=== PATIENT | female | born 1985 | race Caucasian/White ===

== ENCOUNTER 2023-03-10 03:01 | Outpatient (CLI) | payer MEDICAID, SELFPAY ==
[2023-03-10 11:55] LABS: Panorama Kit Sent via Fed Ex
[2023-03-10 11:58] LABS: Abs Immature Grans 0.03 10^3/uL (0.0-0.06); Absolute Basophil Count 0.02 10^3/uL (0.0-0.2); Absolute Eosinophil Count 0.11 10^3/uL (0.0-0.7); Absolute Lymphocyte Count 1.16 10^3/uL (1.2-3.4); Absolute Neutrophil Count 5.89 10^3/uL (1.2-6.7); Basophils % 0.3; Eosinophils % 1.4; HCT 37.7 % (36.0-46.0); HGB 12.9 g/dL (11.2-15.7); Immature Grans % 0.4; Lymphocytes % 14.9; MCH 31.3 pg (27.0-33.0); MCHC 34.2 % (32.0-36.0); MCV 92 fL (80-95); Monocytes % 7.7; Neutrophils % 75.3; Platelet Count 273 10^3/uL (130-400); RBC 4.12 10^6/uL (3.93-5.22); RDW 12.6 % (11.7-14.6); RDW-SD 41.8 fL; WBC 7.81 10^3/uL (4.4-10.8)
[2023-03-11 08:33] LABS: Hepatitis B Surface Ag Negative (Negative)
[2023-03-11 09:07] LABS: Hepatitis C Ab w Rflx HCV PCR Negative (Negative)
[2023-03-11 09:15] LABS: HIV-1/2 Ag & Ab Screen Negative (Negative)
[2023-03-11 09:25] LABS: Rubella IgG Ab (UVM) Positive (See Note); Varicella IgG Antibody Positive (See Note)
[2023-03-12 20:27] LABS: Syphilis IgG w/Reflex Nonreactive (Nonreactive)
[2023-03-22 21:25] LABS: Result Summary NEGATIVE; Specimen WB Whole Blood
== END 2023-03-10 03:02 | disposition home or self-care (01) ==
LOC: LBO 03:01
PROVIDERS: Visit Provider Advanced Practice Midwife
DX: Z34.91 Encounter for supervision of normal pregnancy, unspecified, first trimester
CPT/HCPCS: 36415; 81220; 81222; 86787; 86803; 86850; 86900; 86901; 87340; 87389; 85025; 86762; 86780

== ENCOUNTER 2023-03-10 15:12 | Outpatient (REF) | payer MEDICAID, SELFPAY ==
[2023-03-10 15:51] LABS: *AMPHETAMINES SCREEN URINE Negative (Negative); *BARBITURATES SCREEN URINE Negative (Negative); *BENZODIAZEPINES SCREEN URINE Negative (Negative); Cannabinoids THC Negative (Negative); Cocaine Screen,Urine Negative (Negative); METHADONE URINE SCREEN Negative (Negative); OPIATES URINE SCREEN Negative (Negative)
[2023-03-10 15:53] LABS: Tricyclic Antidepressants Negative (Negative)
[2023-03-11 13:53] LABS: Chlamydia Result Negative (Negative); GC Result Negative (Negative)
[2023-03-16 09:42] LABS: Buprenorphine Negative ng/mL (Cutoff: 5.0); Norbuprenorphine Negative ng/mL (Cutoff: 2.5)
[2023-03-17 02:58] LABS: Fentanyl Interpretation Negative.; Fentanyl by LC-MS/MS Not Detected; Norfentanyl by LC-MS/MS Not Detected
== END 2023-03-10 15:13 | disposition home or self-care (01) ==
LOC: LBN 15:12
PROVIDERS: Visit Provider Advanced Practice Midwife
DX: O09.511 Supervision of elderly primigravida, first trimester (principal); Z11.3 Encounter for screening for infections with a predominantly sexual mode of transmission; Z3A.11 11 weeks gestation of pregnancy
CPT/HCPCS: 80307; 80348; 87491; 87591; 80354; 87086

== ENCOUNTER → 2023-05-05 01:40 | Outpatient (CLI) | payer MEDICAID, SELFPAY ==
--- NOTE | 2023-05-05 07:30 | DI.US_ITS ---
Exam(s) US OB 2-3 TRIMESTER EXAM: US OB 2-3 TRIMESTER CLINICAL HISTORY: SURVEY,Z34.90. TECHNIQUE: Transabdominal obstetrical ultrasound performed. COMPARISON: US POCUS EXAM from 02/17/2023 FINDINGS: Number of fetuses: One. position: Variable Placental grade: 1 Placental location: Posterior. Edge of placenta measures 2.5 cm from the internal os. BIOMETRIC DATA: BPD: 44mm = 19+ 3 weeks HC: 163mm = 19+ 0 weeks AC: 138mm = 19+ 2 weeks FL: 29mm = 18+ 6 weeks Cisterna Magna: 4.5 mm Cerebellum: 1.7 cm EFW: 272 grms 50% Composite Age: 19+1 weeks EDC by US: 28 September 2023 Heart Rate: 146BPM Amniotic fluid : Amount of fluid is within normal limits. ANATOMICAL SURVEY: Four-chambered heart: Unremarkable. LVOT: Unremarkable. RVOT: Unremarkable. Left-sided stomach: Unremarkable. urinary bladder: Unremarkable. Bilateral kidneys: Unremarkable. Three-vessel cord: Unremarkable. Cord insertion: Unremarkable. Posterior fossa:Unremarkable. ventricles: Unremarkable. nose: Unremarkable. lips: Unremarkable. palate: Unremarkable. spine: Unremarkable. Two arms and two legs: Unremarkable. IMPRESSION: 1. Single live intrauterine gestation with composite age 19+ 1 weeks. 2. Normal anatomic survey. DATA REPOSITORY:
== END ==
PROVIDERS: PCP Nurse Practitioner Family; Visit Provider Advanced Practice Midwife
DX: Z34.92 Encounter for supervision of normal pregnancy, unspecified, second trimester (principal); Z3A.19 19 weeks gestation of pregnancy
CPT/HCPCS: 76805

== ENCOUNTER 2023-05-28 13:41 | Outpatient (REF) | payer MEDICAID, SELFPAY | END 2023-05-28 13:42 | disposition home or self-care (01) | LOC: LBN 13:41 | PROVIDERS: PCP Nurse Practitioner Family; Visit Provider Advanced Practice Midwife | DX: O26.892 Other specified pregnancy related conditions, second trimester (principal); N89.8 Other specified noninflammatory disorders of vagina; Z3A.22 22 weeks gestation of pregnancy | CPT/HCPCS: 87480; 87510; 87660 ==

== ENCOUNTER 2023-07-09 02:29 | Outpatient (CLI) | payer MEDICAID, SELFPAY ==
[2023-07-09 11:29] LABS: HCT 35.8 % (36.0-46.0); HGB 11.8 g/dL (11.2-15.7); MCH 32.2 pg (27.0-33.0); MCV 98 fL (80-95); MPV 9.9 fL (8.0-11.0); Platelet Count 197 10^3/uL (130-400); RBC 3.67 10^6/uL (3.93-5.22); RDW 12.6 % (11.7-14.6); RDW-SD 45.1 fL; WBC 7.31 10^3/uL (4.4-10.8)
[2023-07-09 11:38] LABS: Glucose,1 Hr (Glucola) 116 mg/dL (80-140)
== END 2023-07-09 02:30 | disposition home or self-care (01) ==
LOC: LBO 02:30
PROVIDERS: PCP Nurse Practitioner Family; Visit Provider Advanced Practice Midwife
DX: Z34.90 Encounter for supervision of normal pregnancy, unspecified, unspecified trimester (principal); Z34.93 Encounter for supervision of normal pregnancy, unspecified, third trimester
CPT/HCPCS: 36415; 82950; 85027

== ENCOUNTER → 2023-08-09 01:45 | Outpatient (CLI) | payer MEDICAID, SELFPAY ==
--- NOTE | 2023-08-09 06:42 | DI.US_ITS ---
Exam(s) US OB SIMEON WEIGHT EXAM: US OB SIMEON WEIGHT CLINICAL HISTORY: bleeding in 2nd trimester,o46.92,MEASURE PLACENTAL DISTANCE FROM OS. TECHNIQUE: Transabdominal obstetrical ultrasound performed. COMPARISON: US US OB 2-3 TRIMESTER from 05/05/2023 FINDINGS: Number of fetuses: 1 position: Cephalic. Placental location: There is a grade 1 posterior placenta. No evidence of previa. Cervical length: At least 4.5 cm. BIOMETRIC DATA: BPD: 8.5cm, 34weeks 2days HC: 30.06cm, 33weeks 2days AC: 28.02cm, 32weeks FL: 6.38cm, 33weeks EFW: 2,020.19g, 4lb 7.57oz, 38% Composite Age: 33weeks 1day ALISSON: 09/26/2023 Heart Rate: 136bpm Amniotic fluid index: 4.89cm. The largest pocket is 1.9 cm. IMPRESSION: 1. Single live intrauterine gestation as above. 2. Estimated weight is 2020gms. This is the 38th percentile. 3. Oligohydramnios. Amniotic fluid index is 4.9 cm. The largest pocket is 1.9 cm. DATA REPOSITORY:
== END ==
PROVIDERS: PCP Nurse Practitioner Family; Visit Provider Advanced Practice Midwife
DX: O46.93 Antepartum hemorrhage, unspecified, third trimester (principal); O41.03X0 Oligohydramnios, third trimester, not applicable or unspecified; Z3A.33 33 weeks gestation of pregnancy
CPT/HCPCS: 76816

== ENCOUNTER 2023-08-09 09:55 | Outpatient (CLI) | payer MEDICAID, SELFPAY ==
[2023-08-09 10:08] VITALS: BP 114/78; PULSE 62; TEMP 36.6
[2023-08-09 10:11] VITALS: BP 114/78; PULSE 62
--- NOTE | 2023-08-09 11:43 | W.OBNST ---
Date of service: 08/09/23 Time of Service: 11:43 NST Evaluation Reason for NST Reasons for Nonstress Test: OLIGOHYDRAMNIOS Gestational Age Gestational Age in Weeks and Days: 32 Weeks and 5Days Test and Monitor Explained Test/Monitor Explained: Test Explained, Monitor Explained and Patient Verbalized Understanding Vital Signs Blood Pressure: 114/78 Pulse: 62 Temperature: 97.9 F Urine Results Urine Protein: Negative Urine Ketones: Negative Urine Glucose: Negative Urine Blood: Negative NST Information Date on Monitor: 08/09/23 Time on Monitor: 10:00 NST Interventions: PO Hydration NST Evaluation Patient States Movement: Present FHR Baseline: 130 Variability: Moderate 6-25 bpm Accelerations: 15x15 Decelerations: None NST Results: Reactive Note Ultrasound Done: N/A. NST Note Note: Janae is here for an NST for oligohydramnios. SIMEON at DI today was 4.8. Reactive NST today. Plan made for weekly SIMEON and NST 2 x weekly and that has been scheduled. Plan reviewed with Dr Gabriel who agrees. NST Reviewed and Verified by: Fransisca Arriaga
[2023-08-09 11:45] VITALS: BP 114/78; PULSE 62; TEMP 36.6
== END 2023-08-09 10:53 | disposition home or self-care (01) ==
LOC: BCD 09:57 → OBS 10:05
PROVIDERS: PCP Nurse Practitioner Family; Visit Provider Advanced Practice Midwife
DX: O41.03X0 Oligohydramnios, third trimester, not applicable or unspecified (principal); Z3A.32 32 weeks gestation of pregnancy
CPT/HCPCS: 59025

== ENCOUNTER 2023-08-12 12:47 | Outpatient (CLI) | payer MEDICAID, SELFPAY ==
[2023-08-12 12:52] VITALS: BP 120/69; PULSE 74; TEMP 36.9
--- NOTE | 2023-08-12 13:15 | W.OBNST ---
Date of service: 08/12/23 Time of Service: 13:15 NST Evaluation Reason for NST Reasons for Nonstress Test: OLIGOHYDRAMNIOS Gestational Age Gestational Age in Weeks and Days: 33 Weeks and 1Days Test and Monitor Explained Test/Monitor Explained: Test Explained, Monitor Explained and Patient Verbalized Understanding Vital Signs Blood Pressure: 120/69 Pulse: 74 Temperature: 98.4 F NST Information Date on Monitor: 08/12/23 Time on Monitor: 12:41 Date off Monitor: 08/12/23 Time off Monitor: 13:07 Total Time on Monitor: 26 NST Interventions: PO Hydration Contraction Frequency: 0 NST Evaluation Patient States Movement: Present FHR Baseline: 130 Variability: Moderate 6-25 bpm Accelerations: 15x15 Decelerations: None NST Results: Reactive Note Ultrasound Done: N/A. NST Note Note: NST is reactive and reassuring. Janae is drinking water more often and denies any signs of leaking. Has NST and repeat SIMEON on Wednesday. NST Reviewed and Verified by: Fransisca Figueredo
[2023-08-12 13:16] VITALS: BP 120/69; PULSE 74; TEMP 36.9
== END 2023-08-12 13:21 ==
LOC: BCD 12:48 → OBS 12:51
PROVIDERS: PCP Nurse Practitioner Family; Visit Provider Advanced Practice Midwife
DX: O41.03X0 Oligohydramnios, third trimester, not applicable or unspecified (principal); Z3A.33 33 weeks gestation of pregnancy
CPT/HCPCS: 59025

== ENCOUNTER 2023-08-16 05:52 | Outpatient (CLI) | payer MEDICAID, SELFPAY ==
[2023-08-16 12:47] VITALS: BP 123/70; PULSE 73; TEMP 36.3
[2023-08-16 12:48] VITALS: BP 123/70; PULSE 73; TEMP 36.3
--- NOTE | 2023-08-16 15:18 | W.OBNST ---
Date of service: 08/16/23 Time of Service: 15:18 NST Evaluation Reason for NST Reasons for Nonstress Test: OLIGOHYDRAMNIOS Gestational Age Gestational Age in Weeks and Days: 33 Weeks and 5Days Test and Monitor Explained Test/Monitor Explained: Test Explained, Monitor Explained and Patient Verbalized Understanding Vital Signs Blood Pressure: 123/70 Pulse: 73 Temperature: 97.4 F Urine Results Urine Protein: Negative Urine Ketones: Negative Urine Glucose: Negative Urine Blood: Negative NST Information Date on Monitor: 08/16/23 Time on Monitor: 12:51 Date off Monitor: 08/16/23 Time off Monitor: 13:30 Total Time on Monitor: 39 NST Interventions: PO Hydration NST Evaluation Patient States Movement: Present FHR Baseline: 145 Variability: Moderate 6-25 bpm Accelerations: 15x15 Decelerations: None NST Results: Reactive Note Ultrasound Done: SIMEON Total SIMEON: 7.97 Other Pertinent Findings: Heart Rate, Presentation (cephalic, ROP) and Placental Location (posterior and left/fundal) Coding for SIMEON w/NST: Completed Exam. NST Note Note: Normal fluid leve seen today. Discussed with Dr. Daigle, will recheck next week NST's x2 wk until SIMEON is found to be normal and stable NST Reviewed and Verified by: Deisy Millan
[2023-08-16 15:21] VITALS: BP 123/70; PULSE 73; TEMP 36.3
== END 2023-08-16 13:51 ==
LOC: BCD 05:53 → OBS 12:45
PROVIDERS: PCP Nurse Practitioner Family; Visit Provider Advanced Practice Midwife
DX: O41.03X0 Oligohydramnios, third trimester, not applicable or unspecified (principal); Z3A.33 33 weeks gestation of pregnancy
CPT/HCPCS: 59025; 76815

== ENCOUNTER 2023-08-19 12:43 | Outpatient (CLI) | payer MEDICAID, SELFPAY ==
[2023-08-19 12:55] VITALS: BP 121/78; PULSE 78; TEMP 36.7
[2023-08-19 13:07] VITALS: BP 121/78; PULSE 78
[2023-08-19 15:49] VITALS: BP 121/78; PULSE 78; TEMP 36.7
--- NOTE | 2023-08-19 15:49 | W.OBNST ---
Date of service: 08/19/23 Time of Service: 15:49 NST Evaluation Reason for NST Reasons for Nonstress Test: OLIGOHYDRAMNIOS Gestational Age Gestational Age in Weeks and Days: 34 Weeks and 1Days Test and Monitor Explained Test/Monitor Explained: Test Explained, Monitor Explained and Patient Verbalized Understanding Vital Signs Blood Pressure: 121/78 Pulse: 78 Temperature: 98.1 F NST Information Date on Monitor: 08/19/23 Time on Monitor: 12:50 Date off Monitor: 08/19/23 Time off Monitor: 13:08 Total Time on Monitor: 18 NST Interventions: PO Hydration NST Evaluation Patient States Movement: Present FHR Baseline: 135 Variability: Moderate 6-25 bpm Accelerations: 15x15 Decelerations: None NST Results: Reactive Note Ultrasound Done: N/A. NST Note Note: SIMEON and NST on Wednesday NST Reviewed and Verified by: Deisy Millan
== END 2023-08-19 13:20 | disposition home or self-care (01) ==
LOC: BCD 12:43 → OBS 12:53
PROVIDERS: PCP Nurse Practitioner Family; Visit Provider Advanced Practice Midwife
DX: O41.03X0 Oligohydramnios, third trimester, not applicable or unspecified (principal); Z3A.34 34 weeks gestation of pregnancy
CPT/HCPCS: 59025

== ENCOUNTER 2023-08-23 07:42 | Outpatient (CLI) | payer MEDICAID, SELFPAY ==
[2023-08-23 13:16] VITALS: BP 121/83; PULSE 63
[2023-08-23 13:19] VITALS: BP 121/83; PULSE 63; TEMP 36.4
--- NOTE | 2023-08-23 14:22 | W.OBNST ---
Date of service: 08/23/23 Time of Service: 14:22 NST Evaluation Reason for NST Reasons for Nonstress Test: OLIGOHYDRAMNIOS Gestational Age Gestational Age in Weeks and Days: 34 Weeks and 5Days Test and Monitor Explained Test/Monitor Explained: Test Explained, Monitor Explained and Patient Verbalized Understanding Vital Signs Blood Pressure: 121/83 Pulse: 63 Temperature: 97.5 F Urine Results Urine Protein: Negative Urine Ketones: Negative Urine Glucose: Negative Urine Blood: Negative NST Information Date on Monitor: 08/23/23 Time on Monitor: 13:29 Date off Monitor: 08/23/23 Time off Monitor: 13:59 Total Time on Monitor: 30 NST Interventions: PO Hydration Contraction Frequency: 0 NST Evaluation Patient States Movement: Present FHR Baseline: 135 Variability: Moderate 6-25 bpm Accelerations: 15x15 and Prolonged Decelerations: None NST Results: Reactive Note Ultrasound Done: SIMEON Indication: Oligohydraminos Coding for SIMEON w/NST: Completed Exam. NST Note Note: SIMEON 10 per POCUS exam performed by Johanna shin CNM. Reactive NST. Will return for NSTs weekly. NST Reviewed and Verified by: Fransisca Arriaga
[2023-08-23 14:23] VITALS: BP 121/83; PULSE 63; TEMP 36.4
== END 2023-08-23 14:11 ==
LOC: BCD 07:43 → OBS 12:46
PROVIDERS: PCP Nurse Practitioner Family; Visit Provider Advanced Practice Midwife
DX: O41.03X0 Oligohydramnios, third trimester, not applicable or unspecified (principal); Z3A.34 34 weeks gestation of pregnancy
CPT/HCPCS: 59025; 76815

== ENCOUNTER 2023-08-30 07:14 | Outpatient (CLI) | payer MEDICAID, SELFPAY ==
[2023-08-30 12:47] VITALS: BP 128/79; PULSE 72; TEMP 36.6
--- NOTE | 2023-08-30 13:26 | W.OBNST ---
Date of service: 08/30/23 Time of Service: 13:26 NST Evaluation Reason for NST Reasons for Nonstress Test: ADVANCED MATERNAL AGE Gestational Age Gestational Age in Weeks and Days: 35 Weeks and 5Days Test and Monitor Explained Test/Monitor Explained: Test Explained, Monitor Explained and Patient Verbalized Understanding Vital Signs Blood Pressure: 128/79 Pulse: 72 Temperature: 97.9 F Urine Results Urine Protein: Negative Urine Ketones: Negative Urine Glucose: Negative Urine Blood: Negative NST Information Date on Monitor: 08/30/23 Time on Monitor: 12:50 Date off Monitor: 08/30/23 Time off Monitor: 13:10 Total Time on Monitor: 20 NST Interventions: PO Hydration Contraction Frequency: 0 NST Evaluation Patient States Movement: Present FHR Baseline: 130 Variability: Moderate 6-25 bpm Accelerations: 15x15 Decelerations: None NST Results: Reactive Note Ultrasound Done: N/A. NST Note Note: Repeat NST in 1 wk, GBS collected Next EFW/SIMEON on 09/07 NST Reviewed and Verified by: Deisy Millan
[2023-08-30 13:27] VITALS: BP 128/79; PULSE 72; TEMP 36.6
== END 2023-08-30 13:20 ==
LOC: BCD 07:15 → OBS 12:43
PROVIDERS: PCP Nurse Practitioner Family; Visit Provider Advanced Practice Midwife
DX: O09.523 Supervision of elderly multigravida, third trimester (principal); Z3A.35 35 weeks gestation of pregnancy
CPT/HCPCS: 59025; 87081

== ENCOUNTER 2023-09-06 12:02 | Outpatient (CLI) | payer MEDICAID, SELFPAY ==
[2023-09-06 12:51] VITALS: BP 122/73; PULSE 64; TEMP 36.5
[2023-09-06 12:54] VITALS: BP 122/73; PULSE 64
--- NOTE | 2023-09-06 13:43 | W.OBNST ---
Date of service: 09/06/23 Time of Service: 13:44 NST Evaluation Reason for NST Reasons for Nonstress Test: ADVANCED MATERNAL AGE Gestational Age Gestational Age in Weeks and Days: 36 Weeks and 5Days Test and Monitor Explained Test/Monitor Explained: Test Explained, Monitor Explained and Patient Verbalized Understanding Vital Signs Blood Pressure: 122/73 Pulse: 64 Temperature: 97.7 F Urine Results Urine Protein: Negative Urine Ketones: Negative Urine Glucose: Negative Urine Blood: Negative NST Information Time on Monitor: 12:53 Date off Monitor: 09/06/23 NST Interventions: PO Hydration NST Evaluation Patient States Movement: Present FHR Baseline: 135 Variability: Moderate 6-25 bpm Accelerations: 15x15 NST Results: Reactive Note Ultrasound Done: N/A. NST Note Note: Reactive NST. US scheduled for 09/05. CBC drawn and results pending. Reviewed pos. GBS results and antibiotic prophylaxis. return to Center in 1 week for NST and visit. NST Reviewed and Verified by: Fransisca Arriaga
[2023-09-06 13:44] VITALS: BP 122/73; PULSE 64; TEMP 36.5
[2023-09-06 13:57] LABS: HCT 35.9 % (36.0-46.0); HGB 11.8 g/dL (11.2-15.7); MCH 31.5 pg (27.0-33.0); MCHC 32.9 % (32.0-36.0); MCV 96 fL (80-95); MPV 10.2 fL (8.0-11.0); Platelet Count 184 10^3/uL (130-400); RBC 3.75 10^6/uL (3.93-5.22); RDW 12.5 % (11.7-14.6); RDW-SD 43.7 fL; WBC 8.35 10^3/uL (4.4-10.8)
== END 2023-09-06 13:50 ==
LOC: BCD 12:02 → OBS 12:50
PROVIDERS: PCP Nurse Practitioner Family; Visit Provider Advanced Practice Midwife
DX: O09.523 Supervision of elderly multigravida, third trimester (principal); Z3A.36 36 weeks gestation of pregnancy
CPT/HCPCS: 59025; 36415; 85027

== ENCOUNTER → 2023-09-08 00:56 | Outpatient (CLI) | payer MEDICAID, SELFPAY ==
--- NOTE | 2023-09-08 07:00 | DI.US_ITS ---
Exam(s) US OB SIMEON WEIGHT EXAM: US OB SIMEON WEIGHT CLINICAL HISTORY: low fluid, interval growth,oligohydramnios,O41.00XO. TECHNIQUE: Transabdominal obstetrical ultrasound performed. COMPARISON: US US OB SIMEON WEIGHT from 08/09/2023 FINDINGS: Number of fetuses: 1 position: Cephalic. Placental location: There is a grade 2 posterior placenta. No evidence of previa. BIOMETRIC DATA: BPD: 8.82cm, 35weeks 5days HC: 31.71cm, 35weeks 5days AC: 31.53cm, 35weeks 3days FL: 7.15cm, 36weeks 4days EFW: 2,773.05g, 6lb 1.26oz, 25.3% Composite Age: 35weeks 6days ALISSON: 10/07/2023 Heart Rate: 155bpm Amniotic fluid index: 7.6cm. The largest pocket measures 3.2 cm. IMPRESSION: 1. Single live intrauterine gestation as above. 2. Estimated weight is 2773gms. This is the 25th percentile. 3. Amniotic fluid index is 7.6 cm. The largest pocket measures 3.2 cm. DATA REPOSITORY:
== END ==
PROVIDERS: PCP Nurse Practitioner Family; Visit Provider Advanced Practice Midwife
DX: O41.00X0 Oligohydramnios, unspecified trimester, not applicable or unspecified (principal)
CPT/HCPCS: 76816

== ENCOUNTER 2023-09-13 07:10 | Outpatient (CLI) | payer MEDICAID, SELFPAY ==
[2023-09-13 12:45] VITALS: BP 117/79; PULSE 64; TEMP 36.4
[2023-09-13 13:03] VITALS: BP 117/79; PULSE 64
[2023-09-13 14:12] VITALS: BP 117/79; PULSE 64; TEMP 36.4
--- NOTE | 2023-09-13 14:12 | W.OBNST ---
Date of service: 09/13/23 Time of Service: 14:12 NST Evaluation Reason for NST Reasons for Nonstress Test: OLIGOHYDRAMNIOS Gestational Age Gestational Age in Weeks and Days: 37 Weeks and 5Days Test and Monitor Explained Test/Monitor Explained: Test Explained, Monitor Explained and Patient Verbalized Understanding Vital Signs Blood Pressure: 117/79 Pulse: 64 Temperature: 97.5 F Urine Results Urine Protein: Negative Urine Ketones: Negative Urine Glucose: Negative Urine Blood: Negative NST Information Date on Monitor: 09/13/23 Time on Monitor: 12:48 Date off Monitor: 09/13/23 Time off Monitor: 13:25 Total Time on Monitor: 37 NST Interventions: PO Hydration NST Evaluation Patient States Movement: Present FHR Baseline: 130 Variability: Moderate 6-25 bpm Accelerations: 15x15 Decelerations: None NST Results: Reactive Note Ultrasound Done: N/A. NST Note Note: Will get POCUS SIMEON next week NST Reviewed and Verified by: Deisy Millan
== END 2023-09-13 13:25 | disposition other institution (70) ==
LOC: BCD 07:11 → OBS 12:43
PROVIDERS: PCP Nurse Practitioner Family; Visit Provider Advanced Practice Midwife
DX: O41.03X0 Oligohydramnios, third trimester, not applicable or unspecified (principal); Z3A.37 37 weeks gestation of pregnancy
CPT/HCPCS: 59025

== ENCOUNTER 2023-09-20 07:49 | Outpatient (CLI) | payer MEDICAID, SELFPAY ==
[2023-09-20 12:34] VITALS: BP 130/82; PULSE 68; TEMP 36.6
[2023-09-20 12:53] VITALS: BP 130/82; PULSE 68
--- NOTE | 2023-09-20 13:20 | W.OBNST ---
Date of service: 09/20/23 Time of Service: 13:21 NST Evaluation Reason for NST Reasons for Nonstress Test: OLIGOHYDRAMNIOS Gestational Age Gestational Age in Weeks and Days: 38 Weeks and 5Days Test and Monitor Explained Test/Monitor Explained: Test Explained, Monitor Explained and Patient Verbalized Understanding Vital Signs Blood Pressure: 130/82 Pulse: 68 Temperature: 97.9 F NST Information Date on Monitor: 09/20/23 Time on Monitor: 12:39 Date off Monitor: 09/20/23 Time off Monitor: 13:08 Total Time on Monitor: 29 NST Interventions: PO Hydration Contraction Frequency: rare NST Evaluation Patient States Movement: Present FHR Baseline: 135 Variability: Moderate 6-25 bpm Accelerations: 15x15 Decelerations: None NST Results: Reactive Note Ultrasound Done: SIMEON Total SIMEON: 6.3 Other Pertinent Findings: Heart Rate (138), Presentation (ROP) and Placental Location (post/fundal on left side) Coding for SIMEON w/NST: Completed Exam. NST Note NST Reviewed and Verified by: Deisy Millan
[2023-09-20 13:21] VITALS: BP 130/82; PULSE 68; TEMP 36.6
--- NOTE | 2023-09-20 13:54 | W.OBNST ---
Date of service: 09/20/23 Time of Service: 13:54 NST Evaluation Reason for NST Reasons for Nonstress Test: OLIGOHYDRAMNIOS Gestational Age Gestational Age in Weeks and Days: 38 Weeks and 5Days Test and Monitor Explained Test/Monitor Explained: Test Explained, Monitor Explained and Patient Verbalized Understanding Vital Signs Blood Pressure: 130/82 Pulse: 68 Temperature: 97.9 F NST Information Date on Monitor: 09/20/23 Time on Monitor: 12:39 Date off Monitor: 09/20/23 Time off Monitor: 13:08 Total Time on Monitor: 29 NST Interventions: PO Hydration Contraction Frequency: rare NST Evaluation Patient States Movement: Present FHR Baseline: 135 Variability: Moderate 6-25 bpm Accelerations: 15x15 Decelerations: None NST Results: Reactive Note Ultrasound Done: SIMEON Indication: Other (previous oligohydramnios) Coding for SIMEON w/NST: Completed Exam (exam performed by Johanna shin CNM). NST Note Note: Janae is here for NST due to previous oligohydramnios. SIMEON 6.2 per exam by Johanna Shin. Options reviewed including induction. Janae prefers to await spontaneous labor. Signs of labor reviewed. RTO for NST in 1 week NST Reviewed and Verified by: Fransisca Arriaga
[2023-09-20 13:58] VITALS: BP 130/82; PULSE 68; TEMP 36.6
== END 2023-09-20 13:55 | disposition other institution (70) ==
LOC: BCD 07:50 → OBS 12:34
PROVIDERS: PCP Nurse Practitioner Family; Visit Provider Advanced Practice Midwife
DX: O41.03X0 Oligohydramnios, third trimester, not applicable or unspecified (principal); Z3A.38 38 weeks gestation of pregnancy
CPT/HCPCS: 59025; 76815

== ENCOUNTER 2023-09-27 07:46 | Outpatient (CLI) | payer MEDICAID, SELFPAY ==
[2023-09-27 13:01] VITALS: BP 127/87; PULSE 62
[2023-09-27 13:12] VITALS: BP 127/87; PULSE 62; TEMP 36.6
--- NOTE | 2023-09-27 16:16 | W.OBNST ---
Date of service: 09/27/23 Time of Service: 16:16 NST Evaluation Reason for NST Reasons for Nonstress Test: OLIGOHYDRAMNIOS Gestational Age Gestational Age in Weeks and Days: 39 Weeks and 5Days Test and Monitor Explained Test/Monitor Explained: Test Explained, Monitor Explained and Patient Verbalized Understanding Vital Signs Blood Pressure: 127/87 Pulse: 62 Temperature: 97.9 F Urine Results Urine Protein: Negative Urine Ketones: Negative Urine Glucose: Negative Urine Blood: Negative NST Information Date on Monitor: 09/27/23 Time on Monitor: 13:01 Date off Monitor: 09/27/23 Time off Monitor: 13:34 Total Time on Monitor: 33 NST Interventions: PO Hydration Contraction Frequency: None NST Evaluation Patient States Movement: Present FHR Baseline: 125 Variability: Moderate 6-25 bpm Accelerations: 15x15 Decelerations: None NST Results: Reactive Note Ultrasound Done: SIMEON Indication: Oligohydraminos (seen at 33 wks) Largest Vertical Pocket: 3 Total SIMEON: 5.5 Other Pertinent Findings: Heart Rate (140) and Presentation Coding for SIMEON w/NST: Completed Exam and Presentation Presentation Results: cephalic, ROP Coding for Presentation w/NST: Completed Exam. NST Note NST Reviewed and Verified by: Deisy Millan
[2023-09-27 16:17] VITALS: BP 127/87; PULSE 62; TEMP 36.6
== END 2023-09-27 13:55 ==
LOC: BCD 08:43 → OBS 12:16
PROVIDERS: PCP Nurse Practitioner Family; Visit Provider Advanced Practice Midwife
DX: O41.03X0 Oligohydramnios, third trimester, not applicable or unspecified (principal); Z3A.39 39 weeks gestation of pregnancy
CPT/HCPCS: 59025; 76815

== ENCOUNTER 2023-09-29 07:03 | Inpatient (IN) | payer MEDICAID, SELFPAY ==
[2023-09-29] VITALS (7 sets, daily range): BP systolic 115–145; BP diastolic 74–86; PULSE 67–78; RESP 12–16; TEMP 36.6–36.8
--- NOTE | 2023-09-29 06:53 | NUR.NOTE ---
Nursing Note: 0645- Pt arrived ambulatory with reports of cxs about every 5 mins since 2330-midnight. Pt reports some spotting and denies leaking of fluid. Pt denies problems with .
[2023-09-29 07:39] LABS: HCT 35.8 % (36.0-46.0); HGB 11.9 g/dL (11.2-15.7); MCH 31.6 pg (27.0-33.0); MCHC 33.2 % (32.0-36.0); MCV 95 fL (80-95); MPV 9.9 fL (8.0-11.0); Platelet Count 188 10^3/uL (130-400); RBC 3.77 10^6/uL (3.93-5.22); RDW 12.6 % (11.7-14.6); RDW-SD 43.8 fL; WBC 8.56 10^3/uL (4.4-10.8)
--- NOTE | 2023-09-29 07:51 | W.PM.OBHPL1 ---
Date of service: 09/29/23 Time of Service: 08:05 Assessment and Plan Assessment and plan (1) Normal labor: Status: Acute Assessment and plan: A: 38 yo at 40 wks, spontaneous onset early labor Favorable cvx with maynard score of 9 on arrival Category 1 tracing, GBS+, Rh+, low risk for PPD or SD, Previously scheduled for IOL tonight due to SIMEON of 5.5, fetus AGA P: Admit to BC, CBC, T&S, initial tracing reactive Expectant management, intermittent auscultation GBS prophylaxis planned when becomes more uncomfortable Anticipate OB-HPI Labor/Delivery History of Present Illness Reason for Visit: labor Chief Complaint: Uterine Contractions (Contractions kept her up last night, coming about every 10 minutes, increased to every 5 minutes @ 0500, spotting but no heavy bleeding, no ROM, no vomiting. Was scheduled for IOL tonight for SIMEON of 5.5 measured 2 days ago.). ALISSON Calculator Estimated Delivery Date Method Current WG Current Estimate 09/29/23 LMP (Certain) 40w 0d Other Estimates 09/29/23 Ultrasound #1 40w 0d History of Present Expected Delivery Route/Plan - CNM FOB/boyfriend - Kevon Linares (first child) BG GBS positive Specific Issues/Plan 1. AMA & pt's sister is CF carrier: cfDNA screen - neg, CF screen neg, declines MSAFP 1a. Pt declines level 2 ultrasound and MFM consult @ [facility] [place] 2. Low dose ASA at 12 wks d/t nulliparity and AMA 3. Hx LEEP in 2019, PAP done 03/22/19 was nml/neg. s/p appendectomy 4. UDS negative including Fentanyl 5. Constipation- fiber and colace 6. Second trimester Bleeding - vaginal pathogen screen-neg, it occurred one other time at 29 weeks after intercourse. US 7. Low fluid @ 32 wks (SIMEON 4.89), EFW 38th%, placenta not low lying 7a. x2 wkly NST & weekly SIMEON on center (/). 33 wk SIMEON=7.97, 34 wk SIMEON=10.2 7b. Repeat EFW/SIMEON @ 36 wks in DI: EFW in 25th percentile, SIMEON 7.6 Assessment: History Reviewed & Current Review of Systems Narrative: ROS completed and noncontributory other than HPI PFSH All Active Problems (Updated 09/29/23 @ 07:51 by Deisy Millan) Normal labor (Acute) Group B Streptococcus carrier, +RV culture, currently (Acute) Second trimester bleeding (Acute) Elderly primigravida (Acute) (Acute) Medical History (Updated 09/29/23 @ 07:51 by Deisy Millan) Oligohydramnios antepartum Surgical History (Updated 03/10/23 @ 12:19 by Deisy Millan) History of loop electrosurgical excision procedure (LEEP) History of appendectomy Family History (Updated 07/26/23 @ 12:12 by Fransisca Arriaga CNM) Maternal Aunt Breast cancer Sister Cancer ovarian Father Hypertension Social History (Updated 02/17/23 @ 14:01 by Eunice Wallace RN) Smoking/Tobacco Use Status: Never Smoking risk assessment performed?: Yes Alcohol Intake: never Drug use: Never Housing: house Do you feel safe at home: Yes Do you feel safe in your relationship?: Yes History History 2 Para 0 Hx # Term Pregnancies 0 Multiple births 0 Hx # Pregnancies 0 Ectopic pregnancies 0 AB induced 0 Hx Number of Living Children 0 AB spontaneous 1 Meds Allergies and Home Medications Allergies Allergy/AdvReac Type Severity Reaction Status Date / Time No Known Allergies Allergy Verified 08/09/23 09:18 Home Medications ?Medication ?Instructions ?Recorded ?Confirmed ?Type vits no.126-ferrous fum tab PO 02/17/23 09/20/23 History 28 mg iron-folic acid 800 mcg tablet (Classic ) aspirin 81 mg tablet,delayed 81 mg PO DAILY #90 tabs 03/10/23 09/20/23 Rx release docusate sodium 100 mg capsule 100 mg PO DAILY 05/05/23 09/20/23 History (Colace) Exam Physical Exam Vital signs: Temp Pulse Resp BP 98.2 F 73 12 115/74 09/29/23 07:14 09/29/23 07:17 09/29/23 07:14 09/29/23 07:17 Vital Signs Reviewed: Yes Constitutional Constitutional: mild distress, average body habitus and cooperative Detailed Labor and Delivery Exam Dilation: 3.5 Effacement (%): 90 station: -2 Position: ROP Cervix position: mid Consistency: soft MAYNARD Score(Cervical Ripeness Score): 9 Amniotic Membrane Status: Intact Contraction Frequency(min): 5-6 Contraction Duration(sec): 50-60 Contraction Intensity: Mild/Moderate Fetus A Heart Rate Baseline: 135 Monitor Accelerations: 15 X 15 Monitor Decelerations: None Variability: Moderate (6-25 BPM) Categories: Category I Est. Weight: 7 lb 4.404 oz Est. Weight: 3300 gms HEENT Exam HEENT Exam: Normal Neck Exam Neck Exam: Normal Chest/Brest/Axilla Exam Chest Exam: Normal Breast Exam Breast Exam: Not Done Respiratory Exam Respiratory Exam: Normal Cardiovascular Exam Cardiovascular Exam: Normal Abdominal Exam Abdominal Exam: Normal (Gravid, S=D, nontender) Rectal Exam Rectal Exam: Normal Exam Exam: Normal Extremities Exam Extremities Exam: Normal Back/Spine/Pelvis Exam Back Exam: Normal Pelvis Adequate: Yes Skin Exam Skin Exam: Normal Neurological Exam Neurological Exam: Normal Psychiatric Exam Psychiatric Exam: Normal Results Results Group Beta Strep: Positive Blood Type: O+ Rubella Status: Immune Varicella Immunity: Immune Risk Assessment Risk for Shoulder Dystocia Historical/Initial OB: NEGATIVE FOR: Pelvic Abnormality, Pre- BMI>30, Previous Shoulder Dystocia or Previous Macrosomia 36 Weeks: NEGATIVE FOR: Current Gestational DM, EFW>4500gms or Maternal Weight Gain>40lbs 40 Weeks: NEGATIVE FOR: EFW> 4500 gms, Maternal Weight Gain >40lb or Post Dates Increased Risk?: No Delivery Plan @ 36wks: Risk for Pre-Eclampsia Date Initiated/Initials: 03/10/23, will start at 12 wks. JK Yes, if one or more: NEGATIVE FOR: Hx Pre-E/Gest HTN, Chronic HTN, Multiple Gestation, Pre-gestational DM, Renal Disease, Systemic Lupus or APA Syndrome Yes, if 2 or more: POSITIVE FOR: Nulliparity and Age>= 35 yrs; NEGATIVE FOR: >10yr btwn pregnancies, BMI>30, ethinicty, Mother/Sister w/ Pre-E or Previous IUGR Risk for Post- Hemorrhage Initial: NEGATIVE FOR: Multiple Gestation, Previous PPH, Known Clotting Deficiency, Grand Multiparity or Anticoagulation 36 Weeks: NEGATIVE FOR: Anemia, hgb<10, Low platelets(thrombocytopenia), Gestational HTN or Pre-E, Polyhydraminios or EFW>4500gms 40 Weeks: NEGATIVE FOR: Anemia, hgb<10, Low platelets (thrombocytopenia), Gestation HTN or Pre-E, Polyhydraminios or EFW>4500gms At Risk?: No Counseled re: Active Management: Yes Risks Reviewed Risks Reviewed Upon Admission: Yes
[2023-09-29] MEDS: Ondansetron O.D.T. 4 MG TABEF PO (13:08)
--- NOTE | 2023-09-29 17:10 | W.PM.OBNL1 ---
Date of service: 09/29/23 Time of Service: 17:00 Pelvic Exam Dilation: 5 Effacement (%): 100 station: -2 Position: ROP Cervix Position: mid Consistency: soft Contractions Monitor Mode: Palpation Contraction Frequency(min): q5-10 Intensity: Mild/Moderate Fetus A Monitor: Doppler Heart Rate Baseline: 135 FHR Rhythm: Regular Characteristics: Normal Decelerations: None Amniotic Membrane Status: Intact Assessment and Plan Assessment and plan (1) Normal labor: Status: Acute Assessment and plan: A: Early labor in primipara, progressed to 5/100% vtx -2 intact Reassuring FHT per doptone guidelines GBS+ with cervical change; pt coping very well P: Begin PCN prophylaxis Discussed AROM vs pitocin augmentation with pt, she declines either for now Will continue expectant management and anticipate (2) Group B Streptococcus carrier, +RV culture, currently : Status: Acute Objective Abnormal lab results 09/29/23 Range/Units 07:30 RBC 3.77 L (3.93-5.22) 10^6/uL Hct 35.8 L (36.0-46.0) % Temp Pulse Resp BP 97.9 F 68 16 126/82 09/29/23 16:50 09/29/23 16:49 09/29/23 16:50 09/29/23 16:49 Laboratory Results WBC 8.56 10^3/uL (4.4-10.8) 09/29/23 07:30 RBC 3.77 10^6/uL (3.93-5.22) L 09/29/23 07:30 Hgb 11.9 g/dL (11.2-15.7) 09/29/23 07:30 Hct 35.8 % (36.0-46.0) L 09/29/23 07:30 MCV 95 fL (80-95) 09/29/23 07:30 MCH 31.6 pg (27.0-33.0) 09/29/23 07:30 MCHC 33.2 % (32.0-36.0) 09/29/23 07:30 RDW 12.6 % (11.7-14.6) 09/29/23 07:30 Plt Count 188 10^3/uL (130-400) 09/29/23 07:30 MPV 9.9 fL (8.0-11.0) 09/29/23 07:30 ABO/Rh O Positive 09/29/23 07:30 Antibody Screen NEGATIVE 09/29/23 07:30 Vital Signs Reviewed: Yes Subjective Interval history since last seen: Pt has rested, slept, showered, ambulated. Tolerating PO intake well, nausea x1 medicated with zofran 4 mg ODT. Contractions are stronger but remain q5-10 minutes. Since she has progressed to 5 cm she prefers to continue with expectant management at this time.
[2023-09-29] MEDS: Penicillin G POT. 5,000,000 UNITS in Normal Saline 100 ML 200 UNITS IVPB (17:30)
[2023-09-29] MEDS: Normal Saline Flush 10 ML SYR IVP (17:37)
[2023-09-29] MEDS: Normal Saline 10 ML VIAL IJ (22:05)
[2023-09-29] MEDS: Penicillin G POT. 3,000,000 UNITS in Normal Saline 50 ML 100 UNITS IVPB (22:05)
--- NOTE | 2023-09-29 23:20 | W.PM.OBNL1 ---
Date of service: 09/29/23 Time of Service: 23:20 Pelvic Exam Dilation: 5 Effacement (%): 80 station: -1 Cervix Position: mid Consistency: soft Vaginal Exam Presentation: Cephalic Contractions Monitor Mode: External Contraction Frequency(min): every 2-4 Contraction Duration(sec): 50-60 Intensity: Moderate Fetus A Monitor: External (US) Heart Rate Baseline: 140 Presentation: Cephalic Variability: Moderate (6-25 BPM) Categories: Category I FHR Rhythm: Regular Accelerations: 15 X 15 Decelerations: None Amniotic Membrane Status: Intact Assessment and Plan Assessment and plan (1) Normal labor: Status: Acute Assessment and plan: Due to slow progress in labor, Janae requested epidural and Marcin Pinzon CRNA was paged. Will consider pitocin augmentation. Objective Abnormal lab results 09/29/23 Range/Units 07:30 RBC 3.77 L (3.93-5.22) 10^6/uL Hct 35.8 L (36.0-46.0) % Temp Pulse Resp BP 97.9 F 78 16 123/74 09/29/23 16:50 09/29/23 20:57 09/29/23 16:50 09/29/23 20:57 Laboratory Results WBC 8.56 10^3/uL (4.4-10.8) 09/29/23 07:30 RBC 3.77 10^6/uL (3.93-5.22) L 09/29/23 07:30 Hgb 11.9 g/dL (11.2-15.7) 09/29/23 07:30 Hct 35.8 % (36.0-46.0) L 09/29/23 07:30 MCV 95 fL (80-95) 09/29/23 07:30 MCH 31.6 pg (27.0-33.0) 09/29/23 07:30 MCHC 33.2 % (32.0-36.0) 09/29/23 07:30 RDW 12.6 % (11.7-14.6) 09/29/23 07:30 Plt Count 188 10^3/uL (130-400) 09/29/23 07:30 MPV 9.9 fL (8.0-11.0) 09/29/23 07:30 ABO/Rh O Positive 09/29/23 07:30 Antibody Screen NEGATIVE 09/29/23 07:30 Subjective Patient Reports: No new Complaints Interval history since last seen: Janae used the tub and ambulated and used several position. We discussed options at 2030 and at that time, she declined labor augmentation. She now reports stronger contractions and she is having a harder time coping with them due to fatigue due to having had no sleep the night before. Results Hemoglobin/Hematocrit: Hgb 11.9 g/dL (11.2-15.7) 09/29/23 07:30 Hct 35.8 % (36.0-46.0) L 09/29/23 07:30 Abnormal Lab Findings: Abnormal Labs 09/29/23 07:30 RBC 3.77 L Hct 35.8 L
--- NOTE | 2023-09-29 23:50 | ANES.PREOP_ITS ---
General Info Date of Service Date Performed: 09/29/23 Height: 5 ft 8 in Weight: 83.007 kg Body Mass Index (BMI): 27.8 Meds Allergies and Home Medications Allergies Allergy/AdvReac Type Severity Reaction Status Date / Time No Known Allergies Allergy Verified 08/09/23 09:18 Home Medication ?Medication ?Instructions ?Recorded vits no.126-ferrous fum 1 tab PO DAILY 02/17/23 28 mg iron-folic acid 800 mcg tablet (Classic ) aspirin 81 mg tablet,delayed 81 mg PO DAILY #90 tabs 03/10/23 release docusate sodium 100 mg capsule 100 mg PO DAILY 05/05/23 (Colace) Current Visit Medications: Current Medications Generic Name Dose Route Start Last Admin Trade Name Freq PRN Reason Stop Dose Admin Fentanyl/Ropivacaine 200 ml 09/29/23 23:30 Fentanyl/Ropivacaine 2 Mcg/Ml And 0.1% 200 Ml Cadd Cassette EP DIRECTED TIFF Penicillin G Potassium 3,000, 50 mls @ 100 mls/hr 09/29/23 22:00 09/29/23 22:05 000 units/ Sodium Chloride IVPB 100 mls/hr Q4H TIFF Administration IV Miscellaneous Supplies 1 each 09/29/23 07:15 Iv Access IV DIRECTED TIFF Ondansetron HCl 4 mg 09/29/23 12:40 09/29/23 13:08 Ondansetron O.D.T. 4 Mg Tabef PO 4 mg Q6H PRN PRN Administration Sodium Chloride 0 ml 09/29/23 07:11 09/29/23 17:37 Normal Saline Flush 10 Ml Syr IVP 10 ml PRN PRN Administration Sodium Chloride 0 ml 09/29/23 08:30 09/29/23 13:08 Normal Saline Flush 10 Ml Syr IVP Not Given BID TIFF Sodium Chloride 0 ml 09/29/23 07:11 09/29/23 22:05 Normal Saline 10 Ml Vial IJ 10 ml DIRECTED PRN Administration PFSH Active Problems Active Problems: Problem Status Onset Code Normal labor Acute O80, Z37.9 Group B Streptococcus carrier, +RV culture, currently Acute O99.820 Second trimester bleeding Acute O46.92 Elderly primigravida Acute O09.519 Acute Z34.90 Medical History Medical History (Updated 09/29/23 @ 07:51 by Deisy Millan) Oligohydramnios antepartum Surgical History Surgical History (Updated 03/10/23 @ 12:19 by Deisy Millan) History of loop electrosurgical excision procedure (LEEP) History of appendectomy Tobacco Smoking/Tobacco Use Status: Never Alcohol Alcohol Intake: never Substance Use Substance use: Never Prental History History 2 2 Para 0 Hx # Term Pregnancies 0 Multiple births 0 Hx # Pregnancies 0 Ectopic pregnancies 0 AB induced 0 Hx Number of Living Children 0 AB spontaneous 1 Vital Signs and Lab Results Vital Signs Most Recent Vital Signs in EMR: Most Recent Vital Signs Temp Pulse Resp BP 36.6 C 78 16 123/74 09/29/23 16:50 09/29/23 20:57 09/29/23 16:50 09/29/23 20:57 Lab Results 09/29/23 07:30 Blood Type / Crossmatch: 2 Antibody Screen NEGATIVE 09/29/23 Complete Blood Count: 2 White Blood Count 8.56 10^3/uL (4.4-10.8) 09/29/23 07:30 Red Blood Count 3.77 10^6/uL (3.93-5.22) L 09/29/23 07:30 Hemoglobin 11.9 g/dL (11.2-15.7) 09/29/23 07:30 Hematocrit 35.8 % (36.0-46.0) L 09/29/23 07:30 Platelet Count 188 10^3/uL (130-400) 09/29/23 07:30 Complete Metabolic Panel: 2 No Data to Display Liver Function Panel: 2 No Data to Display Coagulation Panel: 2 No Data to Display Cardiac Panel: 2 No Data to Display Arterial Blood Gas: 2 No Data to Display Venous Blood Gas: 2 No Data to Display Pancreas Panel: 2 No Data to Display Thyroid Panel: 2 No Data to Display Infectious Disease: 2 No Data to Display Blood Cultures: 2 No Data to Display Toxicology Panel: 2 No Data to Display Panel: 2 No Data to Display Anesthesia Assessment and Plan Anesthesia History Personal History: No History of Anesthesia Complications Family History: No Family History of Anesthesia Complications Exercise Tolerance Exercise Tolerance: Metabolic Equivalents>4 Pertinent Negatives Pertinent Negatives: No Symptoms of GERD, No Major Cardiovascular Symptoms or Complaints, No Major Pulmonary Symptoms or Complaints and No History of CVA/TIA Cardiac & Pulmonary Exam Cardiac Exam: Normal S1/S2 Heart Sounds Pulmonary Exam: Clear Bilateral Breath Sounds Implantable Cardiac Device Does patient have a Pacemaker or an ICD?: No Airway Exam Known Difficult Airway: No Mallampati Class: 2 Mouth Opening: Normal (> 3cm) Thyromental Distance: Greater than 3 cm Neck Range of Motion: Full ROM Neck Circumference: Normal Teeth Condition: Normal Dentition ASA Classification ASA Score: ASA 2 Emergency Case?: No NPO Status NPO Status: NPO Clears >2 hours, Solids >8 hours Status Status: Confirmed Anesthesia Plan Resuscitation Status: Full Code Anesthesia Technique: Epidural Anesthesia Airway Planned: Natural Airway Pain Management: Surgeon and patient request nerve block Monitors Used: Standard Monitors
[2023-09-30] VITALS (105 sets, daily range): BP systolic 103–138; BP diastolic 56–88; PULSE 53–112; RESP 16–18; TEMP 36.7–36.9; O2SAT 94–100; BMI 27.8
[2023-09-30] MEDS: FentaNYL/ROPIvacaine 2 mcg/ml and 0.1% 200 ML CADD Cassette EP (00:20)
--- NOTE | 2023-09-30 00:27 | ANES.NEUR_ITS ---
Epidural/Spinal Catheter Date Performed: 09/30/23 Procedure Start: 12:05 Procedure Stop: 12:17 Requesting Provider: Fransisca Arriaga Procedure Location: Obstetrics Reason Performed: Labor Epidural Standard Monitors Applied: Blood Pressure, SpO2 and See EMR for corresponding vital signs Patient Position: Sitting Sedation Given (Indicate Dose Given): No Sedation given Patient Mental Status: Awake Sterility: Hand Hygiene, Surgical Cap, Surgical Mask, Sterile Gloves, Sterile Drape/Sheet and Chlorhexidine Procedure Location: L3-L4 Interspace Epidural Needle: Tuohy 17 Guage Needle Length: 3.5 Inch Needle Approach: Midline Epidural Procedure: Skin Prepped, Sterile Drape Placed, 1% Lidocaine to skin and subcutaneous tissue with 25G needle, Tuohy Needle placed, PEGGY to Saline Used, Epidural Catheter Placed, Negative Heme, Negative CSF Flow and Tuohy Needle Removed Catheter Placed?: Catheter Placed Test Dose (Indicate Dose Given): 5ml 1.5% Lidocaine with 1:200K Epinephrine Given and Negative Test Dose Loss of Resistance Depth (cm): 7 Catheter depth at skin (cm): 13 Dressing: Sorbaview Dressing Placed, Mastisol Used and Dressing reinforced with Tape Epidural Pr ovider Bolus (Indicate Dose Given): Total bolus dose given in 3-5 ml divided doses and Total Ropivacaine 0.1% with Fentanyl 2mcg/ml Given from pump. (ml) Dose:: 10 Additives (Indicate Dose Given ): None Infusion Medication: Medication Infusion Began Medication Infusion: Ropivacaine 0.1% with Fentanyl 2mcg/ml Maintenance Infusion Rate (ml/hour): 10 PCEA Bolus Dose (ml): 5 Block Level: N/A Paresthesia: None Ultrasound: Not Used Number of Attempts (See previous attempts in note section): 1 Procedure Tolerated: No Complications and Patient tolerated well Procedure Outcome: Successful Performed By: Marcin Pinzon
[2023-09-30] MEDS: Lactated Ringers 250 ML 500 ML IV (00:30)
[2023-09-30] MEDS: Penicillin G POT. 3,000,000 UNITS in Normal Saline 50 ML 100 UNITS IVPB ×2 (02:11→06:04)
[2023-09-30] MEDS: Lactated Ringers 1,000 ML 125 ML IV (02:39)
[2023-09-30] MEDS: Oxytocin/Normal Saline 30 UNIT/500 ML BAG 2 UNITS IV (04:09)
[2023-09-30] MEDS: Oxytocin/Normal Saline 30 UNIT/500 ML BAG 4 UNITS IV (04:38)
[2023-09-30] MEDS: Oxytocin/Normal Saline 30 UNIT/500 ML BAG 6 UNITS IV (05:29)
--- NOTE | 2023-09-30 06:18 | W.PM.OBNL1 ---
Date of service: 09/30/23 Time of Service: 06:18 Pelvic Exam Dilation: 10 Effacement (%): 100 station: +1 Cervix Position: mid Vaginal Exam Presentation: Cephalic Pooling: Positive Contractions Monitor Mode: External Contraction Frequency(min): every 4 min Contraction Duration(sec): 60 Intensity: Strong Fetus A Monitor: External (US) Heart Rate Baseline: 130 Presentation: Cephalic Variability: Moderate (6-25 BPM) Categories: Category I FHR Rhythm: Regular Accelerations: 15 X 15 Decelerations: None Amniotic Membrane Status: Ruptured Rupture Method: Spontaneous Amniotic Fluid: Clear Amount: bag of water palpable with exam Assessment and Plan Assessment and plan (1) Normal labor: Status: Acute Assessment and plan: Lozada was placed by RN. Anticipate . Will assist with pushing when urge is stronger. (2) Group B Streptococcus carrier, +RV culture, currently : Status: Acute Assessment and plan: Receiving 3rd dose of antibiotic. Objective Abnormal lab results 09/29/23 Range/Units 07:30 RBC 3.77 L (3.93-5.22) 10^6/uL Hct 35.8 L (36.0-46.0) % Temp Pulse Resp BP Pulse Ox 97.9 F 73 18 122/63 97 09/29/23 16:50 09/30/23 06:16 09/30/23 04:00 09/30/23 05:27 09/30/23 06:16 Laboratory Results WBC 8.56 10^3/uL (4.4-10.8) 09/29/23 07:30 RBC 3.77 10^6/uL (3.93-5.22) L 09/29/23 07:30 Hgb 11.9 g/dL (11.2-15.7) 09/29/23 07:30 Hct 35.8 % (36.0-46.0) L 09/29/23 07:30 MCV 95 fL (80-95) 09/29/23 07:30 MCH 31.6 pg (27.0-33.0) 09/29/23 07:30 MCHC 33.2 % (32.0-36.0) 09/29/23 07:30 RDW 12.6 % (11.7-14.6) 09/29/23 07:30 Plt Count 188 10^3/uL (130-400) 09/29/23 07:30 MPV 9.9 fL (8.0-11.0) 09/29/23 07:30 ABO/Rh O Positive 09/29/23 07:30 Antibody Screen NEGATIVE 09/29/23 07:30 Subjective Patient Reports: New Complaints Interval history since last seen: Spontaneous rupture of clear fluid noted. Pitocin augnmentation was started and pitocin is running at 6 mu/min. Janae has been feeling more pressure and urge to bear down. Results Hemoglobin/Hematocrit: Hgb 11.9 g/dL (11.2-15.7) 09/29/23 07:30 Hct 35.8 % (36.0-46.0) L 09/29/23 07:30 Abnormal Lab Findings: Abnormal Labs 09/29/23 07:30 RBC 3.77 L Hct 35.8 L
[2023-09-30] MEDS: Acetaminophen 325 MG TAB 650 MG PO ×3 (08:33→19:59)
[2023-09-30] MEDS: Docusate Sodium 100 MG CAP PO ×2 (08:33→19:59)
[2023-09-30] MEDS: Dibucaine 1% 28 GM TUBE TP (08:33)
[2023-09-30] MEDS: Ibuprofen 600 MG TAB PO ×3 (08:34→22:28)
[2023-09-30] MEDS: Hamamelis Leaf/Glycerin 100 EACH BOX PR (08:34)
--- NOTE | 2023-09-30 13:37 | W.ANESPOSTOP ---
Postoperative Evaluation Date, Time and Location Date Performed: 09/30/23 Time Performed: 13:38 Patient Location: Obstetrics Vital Signs Most Recent Imported Vital Signs: Most Recent Vital Signs Temp Pulse Resp BP Pulse Ox 36.8 C 75 17 110/70 100 09/30/23 09:06 09/30/23 10:14 09/30/23 10:14 09/30/23 10:14 09/30/23 10:14 Pain Score Most Recent Pain Score: Most Recent Pain Score Pain Level [Genital] 4 09/30/23 09:06 Pain Level 0 09/30/23 07:15 Assessment Mental Status: Awake (Alert & Oriented to Patient Baseline) Airway and Respiratory Function: Patent airway with normal (patient baseline) respiratory exam Cardiovascular Function: Hemodynamically Stable Hydration Status: Adequately Hydrated Nausea & Vomiting: No Nausea or Vomiting Pain: Pain is tolerable per patient Peripheral Nerve Block: Patient did not receive a nerve block
--- NOTE | 2023-09-30 16:42 | OBVDS_ITS ---
Date of service: 09/30/23 Time of Service: 16:42 OB Labor/ Delivery Information Baby A Delivery Delivery Method: Spontaneaous Presentation: Cephalic Vertex Position: Left Occipital Anterior Cord Description-Baby A: 3 Vessels Amniotic Fluid: Clear Estimated Blood Loss: 300 Delivery Outcome: Liveborn Transferred: Remains with Mother Note: Excellent effect from epidural. Janae awoke with a feeling of pressure and SROM occurred. FHTs 130s during first stage of labor. FHTs 130s in second stage. She progressed to full dilation and began pushing. Second stage huddle was done. Spontaneous delivery of female delivered in BRIDGET position. Baby was p laced on mother's abdomen and dried and stimulated. Spontaneous cry. Cord was clamped and cut by the baby's father. The placenta delivered spontaneously and appears to by intact with a three vessel cord. Pitocin 30 units IV was administered before delivery of the placenta. The perineum was inspected and a first degree aceration and left periurethral laceration was repaired. . The baby did breastfeed. After delivery, Mother and baby and father of the baby were stable and bonding well in the delivery room and there were no complications. Providers Nurse Dental Laboratory Worker: Fransisca Arriaga Nurse: Marbella Oreilly Nurse: Sergio Salcedo Labor/Delivery Information Number of Babies in Womb: 1 Steroids Given: None Reason Steroids Not Administered: N/A Group Beta Strep: N/A Antibiotics Administered: Yes Number of Doses of Antibiotics: 4 Rubella Status: Immune Blood Type: O+ Varicella Immunity: Immune Born En Route: No Maternal Complications: None Shoulder Dystocia: No Stages of Labor Onset of Labor Date: 09/28/23 Onset of Labor Time: 23:00 Complete Dilatation Date: 09/30/23 Complete Dilatation Time: 05:55 Labor - Stage 1 Duration: 30 hours and 55 minutes ROM Baby A: 09/30/23 ROM Baby A: 06:00 ROM Total Time- Baby A: [id number] Infant Delivery Date-Baby A: 09/30/23 Delivery Time-Baby A: 07:04 Labor Stage 2 Duration: 1 hours and 9 minutes Placenta Delivery Date-Baby A: 09/30/23 Placenta Delivery Time-Baby A: 07:13 Labor-Stage 3 Duration: 9 minutes Total Length of Labor-Baby A: 32 hours and 4 minutes Baby A Gender: Female Gestational Status: Term (39-41.6 wks) Gestational Age in Weeks/Days: 40 Weeks and 1 Days weight: 7 lb 3.346 oz Length-Baby A: 20 in Head Circumference-Baby A: 13 ft 6 in Score-1 Minute Interval(Baby A) Heart Rate-1 minute: 100 BPM or Greater Respiratory Effort- 1 minute: Spontaneous/Strong Cry Muscle Tone-1 minute: Active Movement Reflex Response-1 minute: Prompt Response Color-1 minute: Bluish Hands or Feet Total Score-1 minute: 9 Score-5 Minute Interval(Baby A) Heart Rate- 5 minute: 100 BPM or Greater Respiratory Effort-5 minute: Spontaneous/Strong Cry Muscle Tone-5 minute: Active Movement Reflex Response-5 minute: Prompt Response Color-5 minute: Bluish Hands or Feet Total Score- 5 minute: 9
[2023-10-01] MEDS: Acetaminophen 325 MG TAB 650 MG PO ×3 (02:20→13:39)
[2023-10-01] MEDS: Ibuprofen 600 MG TAB PO ×2 (04:04→13:39)
[2023-10-01 08:00] VITALS: BP 110/80; PULSE 12; RESP 12; TEMP 36.6
[2023-10-01] MEDS: Docusate Sodium 100 MG CAP PO (09:11)
--- NOTE | 2023-10-01 12:43 | W.PM.OBDISCH ---
Date of service: 10/01/23 Time of Service: 14:07 DS: Diagnosis Discharge Diagnosis (1) Term of female : Status: Acute Asessment and Plan: Caring for baby independently. Pain is managed well with oral analgesics. Voiding without difficulty. well. Receiving support from paz Goodman - stable mother and baby , Post day 1 P - Discharge to home today. Routine post instructions. [facility] Discharge Plan Disposition Patient Disposition: Home Condition: Good Discharge Details Reason For Visit: Labor Admit Date/Time: 09/29/23 07:03 Admit Provider: Deisy Millan Attending Provider: Deisy Millan Primary Care Provider: Oni Yee Home Meds and New Rx's Prescriptions: No Action aspirin 81 mg tablet,delayed release (DR/EC) 81 mg PO DAILY Qty: 90 3RF Rx Instructions: 1 tab daily alternating with 2 tabs daily docusate sodium [Colace] 100 mg capsule 100 mg PO DAILY Classic 28 mg iron- 800 mcg tablet 1 tab PO DAILY Discharge Instructions Activity:: Activity as Tolerated Equipment/Supplies:: No Equipment Needed Diet:: As Tolerated Discharge Orders Discharge Orders: Discharge Order (Routine); Ordered 10/01/23 Ordered By: Fransisca Arriaga OB:DS Summary Summary Vaginal Delivery Method: Spontaneaous Episiotomy Description: None Laceration Description: Periurethral Laceration Extension: First Degree Contraception Discussed Contraception Discussed: Yes Contraceptive Plan: Undecided, Gender-Baby A: Female weight: 7 lb 3.346 oz Status at Discharge Functional status at discharge: independent ambulation Overall status at discharge: patient is back to baseline Mental Status: mental status grossly normal Speech and Movement: speech and movement normal Mood: congruent mood Affect: normal affect Quality:SDOH Health Related Social Needs: No Data to Display Exam Physical Exam Vital signs: Temp Pulse Resp BP Pulse Ox 97.9 F 12 L 12 110/80 97 10/01/23 08:00 10/01/23 08:00 10/01/23 08:00 10/01/23 08:00 09/30/23 20:00 Vital Signs Reviewed: Yes Constitutional Constitutional: no acute distress HEENT Exam HEENT Exam: Normal Neck Exam Neck Exam: Normal Respiratory Exam Respiratory Exam: Normal Cardiovascular Exam Cardiovascular Exam: Normal Fundal Exam Fundus: Below Umbilicus and Firm Rectal Exam Rectal Exam: Normal Extremities Exam Extremity Exam: Normal Skin Exam Skin Exam: Normal Psychiatric Exam Psychiatric Exam: Normal PFSH All Active Problems (Updated 10/01/23 @ 12:44 by Fransisca Arriaga CNM) Term of female (Acute) Surgical History (Updated 03/10/23 @ 12:19 by Deisy Millan) History of loop electrosurgical excision procedure (LEEP) History of appendectomy Family History (Updated 07/26/23 @ 12:12 by Fransisca Arriaga CNM) Maternal Aunt Breast cancer Sister Cancer ovarian Father Hypertension Social History (Updated 02/17/23 @ 14:01 by Eunice Wallace RN) Smoking/Tobacco Use Status: Never Smoking risk assessment performed?: Yes Alcohol Intake: never Drug use: Never Housing: house Do you feel safe at home: Yes Do you feel safe in your relationship?: Yes History History 2 Para 0 Hx # Term Pregnancies 0 Multiple births 0 Hx # Pregnancies 0 Ectopic pregnancies 0 AB induced 0 Hx Number of Living Children 0 AB spontaneous 1 DS: Data Vitals/I&O Vitals and I&O: Vital Signs Temperature 97.9 F 10/01/23 08:00 Temperature Source Oral 10/01/23 08:00 Pulse 12 L 10/01/23 08:00 Pulse Rhythm Regular 10/01/23 08:00 Respiratory Rate 12 10/01/23 08:00 Respiratory Depth Normal 09/30/23 07:00 Blood Pressure 110/80 10/01/23 08:00 Blood Pressure Mean 90 10/01/23 08:00 Pulse Oximetry 97 09/30/23 20:00 Oxygen Delivery Method Room Air 09/29/23 07:14 Oxygen Flow Rate 0 09/29/23 07:14 Pain Level 3 10/01/23 09:11 Comment Pt is sleeping, VS differed until awake 09/29/23 15:43 Intake & Output 09/30/23 10/01/23 10/01/23 23:59 11:59 23:59 Intake Total 650 / 2859.967 Output Total 1250 / 2100 Balance -600 / 759.967 Intake: IV 50 / 2019.967 Oral 600 / 840 Output: Urine 1250 / 2100 Other: Urine Color Yellow Urine Appearance Clear Urine Odor None Voiding Methods Toilet
[2023-10-01 15:57] VITALS: BP 112/80; PULSE 74; TEMP 36.8
== END 2023-10-01 18:33 | disposition home or self-care (01) | DRG 806 ==
PROVIDERS: Admitting Provider Advanced Practice Midwife; PCP Nurse Practitioner Family; Visit Provider Advanced Practice Midwife
DX: O99.824 Streptococcus B carrier state complicating childbirth (principal); O41.03X0 Oligohydramnios, third trimester, not applicable or unspecified; Z37.0 Single live birth; Z3A.40 40 weeks gestation of pregnancy; O70.0 First degree perineal laceration during delivery; O71.82 Other specified trauma to perineum and vulva; O99.62 Diseases of the digestive system complicating childbirth; K59.00 Constipation, unspecified
CPT/HCPCS: 36415; 85027; 86850; 86900; 86901; J2540